=== PATIENT | female | born 1975 | race Caucasian/White ===

== ENCOUNTER 2017-02-26 09:57 | Emergency (ER) | payer OTHER ==
[2017-02-26 10:09] VITALS: TEMP 97.7
--- NOTE | 2017-02-26 10:21 | EDPHY ---
H & P Time Seen by Provider: 02/26/17 10:07 HPI/ROS: CHIEF COMPLAINT: an urinary tract infection History by patient HISTORY OF PRESENT ILLNESS: 41-year-old woman SAB 1 who who is 2 months status post uterine septum removal presents complaining of dysuria, urgency and frequency. She says she took a home urinary tract infection test from the pharmacy which showed she had an infection and her surgeon prescribed her some Bactrim however she is concerned she is and did not want to take the Bactrim as it is contraindicated in . She did a home test yesterday which came out equivocal. Her last menstrual period was 4 weeks ago. She denies any fever, chills, nausea or vomiting. She has had some suprapubic pain. She has had some mild back pain. REVIEW OF SYSTEMS: As in HPI, and all other systems reviewed and are negative Smoking Status: Never smoked Physical Exam: General Appearance: Alert, well-appearing. Eyes: Pupils equal and round no pallor or injection. ENT, Mouth: Mucous membranes moist. Respiratory: Normal, effort, lungs are clear to auscultation. No wheezes, rales or rhonchi. Cardiovascular: Regular rate and rhythm. S1, S2, no murmurs, gallops or rubs appreciated Gastrointestinal: Abdomen is soft and nontender, no masses, bowel sounds normal. Back: No CVA tenderness, no bony tenderness Neurological: Awake, alert and oriented x 3, no pronator drift, normal gait, no pronator drift Skin: Warm and dry, no rashes. Musculoskeletal: No deformities or tenderness. Extremitie:s full range of motion, no edema Psychiatric: Patient has normal affect, there is no agitation. Constitutional: Initial Vital Signs Temperature (C) 36.5 C 02/26/17 10:01 Heart Rate 80 02/26/17 10:01 Respiratory Rate 16 02/26/17 10:01 Blood Pressure 122/83 H 02/26/17 10:01 O2 Sat (%) 96 02/26/17 10:01 O2 Delivery Mode Room Air Allergies/Adverse Reactions: No Known Allergies Allergy (Unverified 02/26/17 10:09) Home Medications: Medication Instructions Recorded Multi-Vitamin Daily 02/26/17 RX: Cephalexin 500 mg PO BID #20 capsule 02/26/17 MDM/Departure - MDM ED Course/Re-evaluation: 41-year-old woman presents with concern for and urinary tract infection. test here was negative however patient's last period was only 4 weeks ago. I have switch her antibiotics from Bactrim to Keflex to treat the UTI seen on urinalysis and I am recommending she repeated test into the days if she does not get her menses as it was due yesterday. There is no evidence of systemic toxicity or pyelonephritis the patient is hemodynamically stable and is discharged home in stable condition. - Depart Disposition: Home, Routine, Self-Care Clinical Impression: Urinary tract infection Qualifiers: Urinary tract infection type: site unspecified Hematuria presence: without hematuria Qualified Code(s): N39.0 - Urinary tract infection, site not specified Condition: Good Instructions: Urinary Tract Infection in Women (ED) Additional Instructions: You were seen by Dr. Joyce Munoz today. Your test was negative. You do have a urinary tract infection. We have changed her antibiotics to cephalexin which is safe in . If you do not get your. In the next 5 days then repeat your test. Return for any worsening or new concerns. Prescriptions: RX: Cephalexin 500 mg PO BID #20 capsule Referrals: [facility] [Other] - As per Instructions
[2017-02-26 10:52] LABS: COLOR YELLOW; LEUKOCYTE ESTERASE,URINE TRACE (NEGATIVE); NITRITE,URINE POSITIVE (NEGATIVE); PH,URINE 5.5 (5.0-7.5)
[2017-02-26 11:02] LABS: BACTERIA 3+ /hpf (NONE SEEN); MUCUS 2+ /lpf (NONE-1+); WBC,URINE 25-50 /hpf (0-3)
[2017-02-26 15:03] VITALS: BP 127/79; PULSE 73; RESP 18; O2SAT 97
== END 2017-02-26 11:20 | disposition home or self-care (01) ==
LOC: CED 09:57
DX: O23.41 Unspecified infection of urinary tract in pregnancy, first trimester (principal); B96.89 Other specified bacterial agents as the cause of diseases classified elsewhere; Z3A.01 Less than 8 weeks gestation of pregnancy
CPT/HCPCS: 81003-PO; 81015-PO; 81025-PO